=== PATIENT | male | born 1940 | race Caucasian/White ===

== ENCOUNTER 2017-10-17 16:05 | Inpatient (IN) ==
--- NOTE | 2017-10-17 16:27 | ED ---
HPI General Chief Complaint: Shortness of Breath/Dyspnea Stated Complaint: sob/evac Time Seen by Provider: 10/17/17 16:17 Mode of arrival: EMS Limitations: no limitations History of Present Illness 6-year-old male with past medical history significant for A. fib on anticoagulation, COPD was brought into the emergency department with increasing shortness of breath that started about approximately 1 week ago. Patient reports productive cough that has been worsening and subjective fevers at home. MD Complaint: shortness of breath and cough Onset (ago): week(s) (2) Severity: moderate Exacerbating factors: exertion Known history of: COPD Related Data Home oxygen amount: none Home Medications Medication Instructions Recorded Confirmed atorvastatin 10/17/17 buspirone 5 mg PO BID 10/17/17 10/17/17 digoxin 0.125 mg PO DAILY 10/17/17 10/17/17 diltiazem HCl 10/17/17 10/17/17 nicotine 1 patch TRANSDERMAL DAILY 10/17/17 10/17/17 rivaroxaban 20 mg PO QPM 10/17/17 10/17/17 sildenafil 10/17/17 tramadol 50 mg PO BID 10/17/17 10/17/17 venlafaxine 75 mg PO TID 10/17/17 10/17/17 Allergies Allergy/AdvReac Type Severity Reaction Status Date / Time No Known Allergies Allergy Unverified 10/17/17 16:18 Review of Systems ROS Unobtainable All other systems reviewed negative except as stated in HPI Except as stated in HPI: all other systems reviewed are negative PMFSH History History Provided By: Patient and Medical Record Medical History Medical History Atrial fibrillation (Acute) COPD (chronic obstructive pulmonary disease) (Acute) Chest pain (Acute) High cholesterol (Acute) Prostate cancer (Acute) Surgical History Surgical History Hx of appendectomy (Acute) Social History Social History Substance History: No History of Abuse Second Hand Smoke Exposure: No Smoking Status: Current every day smoker Tobacco Type: Cigarettes How Often Do You Have a Drink Containing Alcohol: Never Recent Travel in [facility] within the Last 8 Weeks: No Recent Out of Country Travel within the Last 8 Weeks: No Exam Narrative Exam Narrative: GENERAL: Alert and oriented in moderate respiratory distress SKIN: Focused skin assessment warm/dry. HEAD: Atraumatic. Normocephalic. EYES: Pupils equal and round. No scleral icterus. No injection or drainage. ENT: No nasal bleeding or discharge. Mucous membranes pink and moist. NECK: Trachea midline. No JVD. CARDIOVASCULAR: Irregularly rate and rhythm. No murmur appreciated. RESPIRATORY: accessory muscle use. Wheezing expiratory bilaterally GASTROINTESTINAL: Abdomen soft, non-tender, nondistended. Hepatic and splenic margins not palpable. MUSCULOSKELETAL: No obvious deformities. No clubbing. No cyanosis. No edema. NEUROLOGICAL: Awake and alert. No obvious cranial nerve deficits. Motor grossly within normal limits. Normal speech. PSYCHIATRIC: Appropriate mood and affect; insight and judgment normal. Course Initial Documented Vital Signs Temperature 99.9 F H 10/17/17 16:14 Pulse Rate 116 H 10/17/17 16:14 Respiratory Rate 24 10/17/17 16:14 Blood Pressure 214/107 H 10/17/17 16:14 Pulse Oximetry 95 10/17/17 16:14 Last Documented Vital Signs Temperature 97.5 F L 10/19/17 03:46 Pulse Rate 87 10/19/17 03:46 Respiratory Rate 19 10/19/17 03:46 Blood Pressure 188/96 H 10/19/17 03:46 Pulse Oximetry 96 10/19/17 03:46 Critical Care Time Critical Care Time: Yes Total Critical Care Time: 30 Attestation: Aggregate critical care time was [-] minutes. Time to perform other separately billable procedures was not included in the critical care time. My time did not include minutes spent treating any other patients simultaneously or on activities that did not directly contribute to the patient's treatment. The services I provided to this patient were to treat and/or prevent clinically significant deterioration that could result in: I provided critical care services requiring my management, as noted below: Chart data review, documentation time, medication orders and management, vital sign assessments/reviewing monitor data, ordering and reviewing lab tests, ordering and interpreting/reviewing x-rays and diagnostic studies, care of the patient and discussion of the patient with the admitting physicians. Medical Decision Making MDM Narrative Medical decision making narrative: Patient with COPD exacerbation questionable findings on imaging for pneumonia. He was started on Rocephin and Zithromax for bronchitis steroids given admitted for further evaluation and treatment. Lab Data Lab results reviewed: Yes I reviewed the patient's lab results. Result diagrams: 10/18/17 04:59 10/17/17 16:34 Lab Results 10/17/17 10/17/17 10/17/17 Range/Units 16:34 16:34 16:34 WBC 15.7 H (4.0-11.0) th/mm3 RBC 4.59 (4.50-5.90) mil/mm3 Hgb 12.6 L (13.0-17.0) gm/dL Hct 37.5 L (39.0-51.0) % MCV 81.7 (80.0-100.0) fL MCH 27.5 (27.0-34.0) pg MCHC 33.6 (32.0-36.0) % RDW 15.2 (11.6-17.2) % Plt Count 296 (150-450) th/mm3 MPV 9.1 (7.0-11.0) fL Neut % (Auto) 80.5 H (16.0-70.0) % Lymph % (Auto) 6.9 L (9.0-44.0) % Routt % (Auto) 12.3 H (0.0-8.0) % Eos % (Auto) 0.1 (0.0-4.0) % Baso % (Auto) 0.2 (0.0-2.0) % Neut # (Auto) 12.7 H (1.8-7.7) th/mm3 Lymph # (Auto) 1.1 (1.0-4.8) th/mm3 Routt # (Auto) 1.9 H (0.0-0.9) th/mm3 Eos # (Auto) 0.0 (0.0-0.4) th/mm3 Baso # (Auto) 0.0 (0.0-0.2) th/mm3 WBC Differential . Differential Comment Auto diff final Sodium 136 (136-145) meq/L Potassium 3.3 L (3.5-5.1) meq/L Chloride 100 (98-107) meq/L Carbon Dioxide 27.2 (21.0-32.0) meq/L Anion Gap 9 (5-15) meq/L BUN 13 (7-18) mg/dL Creatinine 1.17 (0.60-1.30) mg/dL Estimated GFR 61 L (>89) mL/min Random Glucose 141 H (74-106) mg/dL Lactic Acid 1.4 (0.4-2.0) mmol/L Calcium 8.8 (8.5-10.1) mg/dL Total Bilirubin 0.8 (0.2-1.0) mg/dL AST 12 L (15-37) U/L ALT 22 (12-78) U/L Alkaline Phosphatase 135 H (45-117) U/L Troponin I Less than 0.02 L (0.02-0.05) ng/mL B-Natriuretic Peptide (0-100) pg/mL Total Protein 7.9 (6.4-8.2) g/dL Albumin 3.1 L (3.4-5.0) g/dL 10/17/17 10/18/17 Range/Units 16:34 04:59 WBC 13.0 H (4.0-11.0) th/mm3 RBC 4.41 L (4.50-5.90) mil/mm3 Hgb 11.9 L (13.0-17.0) gm/dL Hct 36.4 L (39.0-51.0) % MCV 82.4 (80.0-100.0) fL MCH 27.1 (27.0-34.0) pg MCHC 32.9 (32.0-36.0) % RDW 15.3 (11.6-17.2) % Plt Count 282 (150-450) th/mm3 MPV 9.1 (7.0-11.0) fL Neut % (Auto) 91.3 H (16.0-70.0) % Lymph % (Auto) 4.7 L (9.0-44.0) % Routt % (Auto) 3.9 (0.0-8.0) % Eos % (Auto) 0.0 (0.0-4.0) % Baso % (Auto) 0.1 (0.0-2.0) % Neut # (Auto) 11.8 H (1.8-7.7) th/mm3 Lymph # (Auto) 0.6 L (1.0-4.8) th/mm3 Routt # (Auto) 0.5 (0.0-0.9) th/mm3 Eos # (Auto) 0.0 (0.0-0.4) th/mm3 Baso # (Auto) 0.0 (0.0-0.2) th/mm3 WBC Differential . Differential Comment Auto diff final Sodium (136-145) meq/L Potassium (3.5-5.1) meq/L Chloride (98-107) meq/L Carbon Dioxide (21.0-32.0) meq/L Anion Gap (5-15) meq/L BUN (7-18) mg/dL Creatinine (0.60-1.30) mg/dL Estimated GFR (>89) mL/min Random Glucose (74-106) mg/dL Lactic Acid (0.4-2.0) mmol/L Calcium (8.5-10.1) mg/dL Total Bilirubin (0.2-1.0) mg/dL AST (15-37) U/L ALT (12-78) U/L Alkaline Phosphatase (45-117) U/L Troponin I (0.02-0.05) ng/mL B-Natriuretic Peptide 174 H (0-100) pg/mL Total Protein (6.4-8.2) g/dL Albumin (3.4-5.0) g/dL Imaging Data Attestation: I personally reviewed and interpreted this imaging study as follows : Radiologist's impression: Chest X-Ray 10/17/17 16:24 CONCLUSION: Mild vascular prominence as described which may represent early congestion. No evidence of consolidating airspace disease. ECG Data Attestation: I personally reviewed and interpreted this ECG as follows: Interpretation: EKG obtained on October 17, 2017 at 1615 revealed atrial fibrillation with RVR in the rate of [address]-T wave abnormalities, OH interval not measured. QTC at 328. No signs of acute ischemia. He does have ST depressions on V4 through V6 but no signs of acute ischemia. Normal axis Discharge Plan Discharge Disposition Patient Disposition: 30 Still Patient Discharge Condition Condition: Fair Discharge Details Diagnosis: Acute exacerbation of chronic obstructive pulmonary disease (COPD), Bronchitis , CHF (congestive heart failure), Accelerated essential hypertension, Atrial fibrillation with RVR Physicians Team ED Provider: Joe Galan Primary Care Provider: Primary Care Physici,No Attending Provider: Edna Solorzano Status ED Status: Left Department Discharge Information Discharge Date/Time: 10/17/17 20:42
[2017-10-17 16:55] LABS: Baso % (Auto) 0.2 % (0.0-2.0); Eos % (Auto) 0.1 % (0.0-4.0); Hematocrit 37.5 % (39.0-51.0); Hemoglobin 12.6 gm/dL (13.0-17.0); Lymph # (Auto) 1.1 th/mm3 (1.0-4.8); Lymph % (Auto) 6.9 % (9.0-44.0); Mean Corpuscular HGB Conc 33.6 % (32.0-36.0); Mean Corpuscular Hemoglobin 27.5 pg (27.0-34.0); Mean Corpuscular Volume 81.7 fL (80.0-100.0); Mean Platelet Volume 9.1 fL (7.0-11.0); Mono # (Auto) 1.9 th/mm3 (0.0-0.9); Mono % (Auto) 12.3 % (0.0-8.0); Neut # (Auto) 12.7 th/mm3 (1.8-7.7); Neut % (Auto) 80.5 % (16.0-70.0); Platelet Count 296 th/mm3 (150-450); Red Blood Count 4.59 mil/mm3 (4.50-5.90); Red Cell Distribution Width 15.2 % (11.6-17.2); White Blood Count 15.7 th/mm3 (4.0-11.0)
[2017-10-17 17:17] LABS: Alanine Aminotransferase 22 U/L (12-78); Albumin 3.1 g/dL (3.4-5.0); Anion Gap 9 meq/L (5-15); Aspartate Aminotransferase 12 U/L (15-37); Blood Urea Nitrogen 13 mg/dL (7-18); Calcium 8.8 mg/dL (8.5-10.1); Carbon Dioxide 27.2 meq/L (21.0-32.0); Chloride 100 meq/L (98-107); Glomerular Filtration Rate 61 mL/min (>89); Glucose,Random 141 mg/dL (74-106); Potassium 3.3 meq/L (3.5-5.1); Sodium 136 meq/L (136-145)
[2017-10-17 17:20] LABS: Alkaline Phosphatase 135 U/L (45-117); Total Protein 7.9 g/dL (6.4-8.2)
--- NOTE | 2017-10-17 17:30 | XR ---
EXAM DATE: 10/17/2017 4:51 PM EDT AGE/SEX: 76 years / Male INDICATIONS: Short of breath and cough. CLINICAL DATA: This is the patient's initial encounter. Patient reports that signs and symptoms have been present for 1 week and indicates a pain score of 0/10. MEDICAL/SURGICAL HISTORY: Cardiovascular disease. None. COMPARISON: No prior exams available for comparison. FINDINGS: Mild vascular prominence especially throughout the right lung is noted. There is no evidence of conso lidating airspace disease or effusion. Heart is normal in size CONCLUSION: Mild vascular prominence as described which may represent early congestion. No evidence of consolidating airspace disease. Electronically signed by: Amrik Dubois MD 10/17/2017 5:28 PM EDT
[2017-10-17] MEDS ORDERED: Azithromycin Inj 500 MG in Sodium Chlor 0.9% Inj 250 ML IV.SIG ONE (17:41)
[2017-10-17] MEDS ORDERED: Acetaminophen 325 MG Tablet PO ONE (17:54)
--- NOTE | 2017-10-17 18:19 | P.HPIM ---
History of Present Illness Primary Care Physician: No Primary Care Physician Chief Complaint: shortness of breath History of Present Illness: patient is a 76 y/o male with history of COPD, atrial fibrillation, dyslipidemia , who presented to ER with shortness of breath. he says that he's had sob for the past one week. he had productive cough of yellowish, brownish sputum. he says that he probably had fever at home. he denies PND, orthopnea, recent weight gain. he says that he has some chest wall pain which he relates to his cough.he still smokes. Review of Systems All other systems reviewed negative except as stated in HPI PMFSH - History History Provided By: Patient - Medical History Medical History: Medical History (Last Updated 10/17/17 @ 17:18 by Murali Soto) Atrial fibrillation COPD (chronic obstructive pulmonary disease) Chest pain High cholesterol Prostate cancer - Surgical History Surgical History: Surgical History (Last Updated 10/17/17 @ 17:18 by Murali Soto) Hx of appendectomy - Tobacco History Second Hand Smoke Exposure: Yes Tobacco Use In Past 30 Days: Yes Smoking Status: Current every day smoker Tobacco Type: Cigarettes - Alcohol History How Often Do You Have a Drink Containing Alcohol: Never - Substance Use History Substance History: No History of Abuse - Travel History Recent Travel in the [place] Within the Last 8 Weeks: No Recent Travel Out of the Country Within the Last 8 Weeks: No - Immunization History Tetanus Immunization: Unsure Medications and Allergies Active Medications: Active Medications Albuterol (Duoneb Neb (Prn)) 1 ampul NEB Q2HR NEB PRN PRN Reason: sob Albuterol (Duoneb Neb (Chris)) 1 ampul NEB Q6HR WHILE AWAKE NEB CHRIS Azithromycin (Zithromax) 500 mg PO DAILY CHRIS Buspirone HCl (Buspar) 5 mg PO BID CHRIS Digoxin (Lanoxin) 125 mcg PO DAILY CHRIS Azithromycin 500 mg/ Sodium (Chloride) 250 mls @ 250 mls/hr IV.SIG ONCE ONE Stop: 10/17/17 18:40 Ceftriaxone Sodium 1,000 mg/ (Sodium Chloride) 100 mls @ 200 mls/hr IV.SIG Q24H CHRIS Methylprednisolone Sodium Succinate (Solumedrol Inj) 40 mg IV.PUSH Q8HR CHRIS Nitroglycerin (Nitrostat Sl) 0.4 mg SL Q5M PRN PRN Reason: HTN Non-Formulary Medication (Venlafaxine [Venlafaxine]) 75 mg PO TID CHRIS Rivaroxaban (Xarelto) 20 mg PO QPM [facility] Allergies Allergy/AdvReac Type Severity Reaction Status Date / Time No Known Allergies Allergy Unverified 10/17/17 16:18 Home Medications Medication Instructions Recorded Confirmed Type atorvastatin 10/17/17 History buspirone 5 mg PO BID 10/17/17 10/17/17 History digoxin 0.125 mg PO DAILY 10/17/17 10/17/17 History diltiazem HCl 10/17/17 10/17/17 History nicotine 1 patch TRANSDERMAL DAILY 10/17/17 10/17/17 History rivaroxaban 20 mg PO QPM 10/17/17 10/17/17 History tramadol 50 mg PO BID 10/17/17 10/17/17 History venlafaxine 75 mg PO TID 10/17/17 10/17/17 History Exam Vital signs: Vital Signs 10/17/17 16:14 10/17/17 16:57 10/17/17 17:00 Temperature 99.9 F H Pulse Rate 116 H 112 H 102 H Respiratory Rate 24 30 H 22 Blood Pressure 214/107 H 182/88 H Pulse Oximetry 95 96 93 L Intake & Output 10/16/17 10/17/17 10/17/17 18:59 06:59 18:59 Weight 90.718 kg - Constitutional mild distress - Routine HEENT Exam Head: Present: normocephalic Eye: Present: PERRL - Routine Neck Exam Present: supple, full ROM - Routine Respiratory Exam Present: wheezes (bilaterally.) - Routine Cardiovascular Exam Present: irregularly irregular - Routine Abdominal Exam Present: soft - Routine Extremities Exam Comments: no pedal edema. - Routine Neurological Exam Present: alert, oriented X3 Results - Labs CBC & Chem 7: 10/17/17 16:34 10/17/17 16:34 Labs: Short CBC 10/17/17 Range/Units 16:34 WBC 15.7 H (4.0-11.0) th/mm3 Hgb 12.6 L (13.0-17.0) gm/dL Hct 37.5 L (39.0-51.0) % Plt Count 296 (150-450) th/mm3 BMP 10/17/17 16:34 Sodium 136 Potassium 3.3 L Chloride 100 Carbon Dioxide 27.2 BUN 13 Creatinine 1.17 Calcium 8.8 Cardiac Enzymes 10/17/17 Range/Units 16:34 Troponin I Less than 0.02 L (0.02-0.05) ng/mL Liver Function 10/17/17 Range/Units 16:34 Total Bilirubin 0.8 (0.2-1.0) mg/dL AST 12 L (15-37) U/L ALT 22 (12-78) U/L Alkaline Phosphatase 135 H (45-117) U/L Albumin 3.1 L (3.4-5.0) g/dL - Imaging Impressions Chest X-Ray 10/17/17 16:24 CONCLUSION: Mild vascular prominence as described which may represent early congestion. No evidence of consolidating airspace disease. Caprini VTE Risk Assessment Caprini VTE Risk Assessment: Moderate/High Risk (score >= 2) Caprini Risk Assessment Model: Point Value = 1 Point Value = 2 Point Value = 3 Point Value = 5 Age 41-60 Minor surgery BMI > 25 kg/m2 Swollen legs Varicose veins or History of unexplained or recurrent spontaneous Oral contraceptives or hormone replacement Sepsis (< 1 month) Serious lung disease, including pneumonia (< 1 month) Abnormal pulmonary function Acute myocardial infarction Congestive heart failure (< 1 month) History of inflammatory bowel disease Medical patient at bed rest Age 61-74 Arthroscopic surgery Major open surgery (> 45 min) Laparoscopic surgery (> 45 min) Malignancy Confined to bed (> 72 hours) Immobilizing plaster cast Central venous access Age >= 75 History of VTE Family history of VTE Factor V Leiden Prothrombin [id number] Lupus anticoagulant Anticardiolipin antibodies Elevated serum homocysteine Heparin-induced thrombocytopenia Other congenital or acquired thrombophilia Stroke (< 1 month) Elective arthroplasty Hip, pelvis, or leg fracture Acute spinal cord injury (< 1 month) Prophylaxis Regimen: Total Risk Factor Score Risk Level Prophylaxis Regimen 0-1 Low Early ambulation 2 Moderate Order ONE of the following: *Sequential Compression Device (SCD) *Heparin 5000 units SQ BID 3-4 Higher Order ONE of the following medications: *Heparin 5000 units SQ TID *Enoxaparin/Lovenox 40 mg SQ daily (WT < 150 kg, CrCl > 30 mL/min) *Enoxaparin/Lovenox 30 mg SQ daily (WT < 150 kg, CrCl > 10-29 mL/min) *Enoxaparin/Lovenox 30 mg SQ BID (WT < 150 kg, CrCl > 30 mL/min) AND/OR *Sequential Compression Device (SCD) 5 or more Highest Order ONE of the following medications: *Heparin 5000 units SQ TID (Preferred with Epidurals) *Enoxaparin/Lovenox 40 mg SQ daily (WT < 150 kg, CrCl > 30 mL/min) *Enoxaparin/Lovenox 30 mg SQ daily (WT < 150 kg, CrCl > 10-29 mL/min) *Enoxaparin/Lovenox 30 mg SQ BID (WT < 150 kg, CrCl > 30 mL/min) AND *Sequential Compression Device (SCD) Assessment and Plan - Plan A/P - COPD exacerbation/ suspect pneumonia keep on oxygen to keep O2 sat >90%- start on neb treatment and IV steroids- continue antibiotics and follow the cultures. counselled on smoking cessation. -a-fib- mildly tachycardic; resume Cardizem, Digoxin and Xarelto- continue to monitor closely while on neb treatments. -dyslipidemia; resume home meds. -mild hypokalemia; replaced. -DVT prophylaxis; on Xarelto. Discussed Condition With: ER physician and the patient. Discharge Planning: when has clinically improved.
[2017-10-18] MEDS: MethylPREDNISolone Sod Succinate Inj 40 MG/ML Vial IV.PUSH SCH ×3 (01:22→17:49)
[2017-10-18 05:54] LABS: Baso % (Auto) 0.1 % (0.0-2.0); Hematocrit 36.4 % (39.0-51.0); Hemoglobin 11.9 gm/dL (13.0-17.0); Lymph # (Auto) 0.6 th/mm3 (1.0-4.8); Lymph % (Auto) 4.7 % (9.0-44.0); Mean Corpuscular HGB Conc 32.9 % (32.0-36.0); Mean Corpuscular Hemoglobin 27.1 pg (27.0-34.0); Mean Corpuscular Volume 82.4 fL (80.0-100.0); Mean Platelet Volume 9.1 fL (7.0-11.0); Mono # (Auto) 0.5 th/mm3 (0.0-0.9); Mono % (Auto) 3.9 % (0.0-8.0); Neut # (Auto) 11.8 th/mm3 (1.8-7.7); Neut % (Auto) 91.3 % (16.0-70.0); Platelet Count 282 th/mm3 (150-450); Red Blood Count 4.41 mil/mm3 (4.50-5.90); Red Cell Distribution Width 15.3 % (11.6-17.2)
[2017-10-18] MEDS: Digoxin 125 MCG Tablet PO SCH (08:54)
[2017-10-18] MEDS: Venlafaxine XR 75 MG Capsule PO SCH (08:55)
--- NOTE | 2017-10-18 10:08 | ECG ---
Date Performed: 10/17/2017 Time Performed: 16:15:32 PTAGE: 76 years EKG: ATRIAL FIBRILLATION WITH RAPID VENTRICULAR RESPONSE NONSPECIFIC ST & T-WAVE ABNORMALITY ABN ORMAL RHYTHM ECG NO PREVIOUS TRACING DOCTOR: Alisa Horowitz Interpretating Date/Time 10/18/2017 10:05:31
--- NOTE | 2017-10-18 12:27 | P.PNIM ---
Subjective Interval history: still with some sob and cough although looks slightly more comfortable than yesterday. no fever today. no other new complaints. overall feeling better today. d/w the RN. Physical Exam Vital signs: Vital Signs 10/17/17 16:14 10/17/17 16:57 10/17/17 17:00 Temperature 99.9 F H Pulse Rate 116 H 112 H 102 H Respiratory Rate 24 30 H 22 Blood Pressure 214/107 H 182/88 H Pulse Oximetry 95 96 93 L 10/17/17 19:31 10/17/17 20:02 10/17/17 21:03 Temperature 97.8 F Pulse Rate 74 103 H 86 Respiratory Rate 22 20 19 Blood Pressure 192/93 H 187/93 H Pulse Oximetry 92 L 97 10/17/17 23:00 10/17/17 23:40 10/18/17 00:05 Temperature 97.7 F Pulse Rate 84 Respiratory Rate 19 21 19 Blood Pressure 175/87 H Pulse Oximetry 97 10/18/17 03:00 10/18/17 04:41 10/18/17 05:39 Temperature 97.5 F L Pulse Rate 80 Respiratory Rate 18 18 17 Blood Pressure 189/96 H Pulse Oximetry 95 10/18/17 08:00 10/18/17 09:09 Temperature 97.5 F L Pulse Rate 86 85 Respiratory Rate 18 14 Blood Pressure 189/88 H Pulse Oximetry 97 99 Intake & Output 10/17/17 10/18/17 10/18/17 18:59 06:59 18:59 Intake Total 480 / 480 Output Total 250 / 250 Balance 230 / 230 Weight 90.718 kg 90.7 kg Intake: Oral 480 / 480 Output: Urine 250 / 250 Other: # Voids 3 Date of Last Bowel Movement 10/16/17 # Bowel Movements 0 - Constitutional mild distress - Routine Respiratory Exam Present: wheezes (bilaterally.) - Routine Cardiovascular Exam Present: RRR - Routine Abdominal Exam Present: soft - Routine Extremities Exam Comments: no pedal edema. - Routine Neurological Exam Present: alert, oriented X3 Results - Labs CBC & Chem 7: 10/18/17 04:59 10/17/17 16:34 Laboratory Results - last 24 hr 10/17/17 10/17/17 10/17/17 16:34 16:34 16:34 WBC 15.7 H RBC 4.59 Hgb 12.6 L Hct 37.5 L MCV 81.7 MCH 27.5 MCHC 33.6 RDW 15.2 Plt Count 296 MPV 9.1 Neut % (Auto) 80.5 H Lymph % (Auto) 6.9 L Dunn % (Auto) 12.3 H Eos % (Auto) 0.1 Baso % (Auto) 0.2 Neut # (Auto) 12.7 H Lymph # (Auto) 1.1 Dunn # (Auto) 1.9 H Eos # (Auto) 0.0 Baso # (Auto) 0.0 WBC Differential . Differential Comment Auto diff final Sodium 136 Potassium 3.3 L Chloride 100 Carbon Dioxide 27.2 Anion Gap 9 BUN 13 Creatinine 1.17 Estimated GFR 61 L Random Glucose 141 H Lactic Acid 1.4 Calcium 8.8 Total Bilirubin 0.8 AST 12 L ALT 22 Alkaline Phosphatase 135 H Troponin I Less than 0.02 L B-Natriuretic Peptide Total Protein 7.9 Albumin 3.1 L 10/17/17 10/18/17 16:34 04:59 WBC 13.0 H RBC 4.41 L Hgb 11.9 L Hct 36.4 L MCV 82.4 MCH 27.1 MCHC 32.9 RDW 15.3 Plt Count 282 MPV 9.1 Neut % (Auto) 91.3 H Lymph % (Auto) 4.7 L Dunn % (Auto) 3.9 Eos % (Auto) 0.0 Baso % (Auto) 0.1 Neut # (Auto) 11.8 H Lymph # (Auto) 0.6 L Dunn # (Auto) 0.5 Eos # (Auto) 0.0 Baso # (Auto) 0.0 WBC Differential . Differential Comment Auto diff final Sodium Potassium Chloride Carbon Dioxide Anion Gap BUN Creatinine Estimated GFR Random Glucose Lactic Acid Calcium Total Bilirubin AST ALT Alkaline Phosphatase Troponin I B-Natriuretic Peptide 174 H Total Protein Albumin Microbiology 10/17/17 18:00 Blood - Peripheral Aerobic Blood Culture - Preliminary No growth in 1 day 10/17/17 18:00 Blood - Peripheral Anaerobic Blood Culture - Preliminary No growth in 1 day 10/17/17 17:55 Blood - Peripheral Aerobic Blood Culture - Preliminary No growth in 1 day 10/17/17 17:55 Blood - Peripheral Anaerobic Blood Culture - Preliminary No growth in 1 day 10/17/17 17:10 Blood - Peripheral Aerobic Blood Culture - Preliminary No growth in 1 day 10/17/17 17:10 Blood - Peripheral Anaerobic Blood Culture - Preliminary No growth in 1 day 10/17/17 17:05 Blood - Peripheral Aerobic Blood Culture - Preliminary No growth in 1 day 10/17/17 17:05 Blood - Peripheral Anaerobic Blood Culture - Preliminary No growth in 1 day - Imaging Impressions Chest X-Ray 10/17/17 16:24 CONCLUSION: Mild vascular prominence as described which may represent early congestion. No evidence of consolidating airspace disease. Assessment and Plan - Plan A/P - COPD exacerbation/ suspect pneumonia- improving slowly. keep on oxygen to keep O2 sat >90%- start on neb treatment and IV steroids- continue antibiotics and follow the cultures. counselled on smoking cessation. walk test tomorrow. -a-fib- HR better; continue Cardizem, Digoxin and Xarelto- continue to monitor closely while on neb treatments. -dyslipidemia; resumed home meds. -mild hypokalemia; replaced. -DVT prophylaxis; on Xarelto. Discharge Planning: dc home in one-two days if continues to improve. consulted PT.
[2017-10-18] MEDS: guaiFENesin/Codeine Syrup 200 MG/20 MG 10 ML UDC PO PRN ×2 (18:56→23:30)
[2017-10-18] MEDS: Rivaroxaban 20 MG Tablet PO SCH (19:59)
[2017-10-18] MEDS: Azithromycin 250 MG Tablet PO SCH (21:00)
[2017-10-19] MEDS: MethylPREDNISolone Sod Succinate Inj 40 MG/ML Vial IV.PUSH SCH ×3 (01:00→17:05)
[2017-10-19] MEDS: guaiFENesin/Codeine Syrup 200 MG/20 MG 10 ML UDC PO PRN ×2 (05:44→17:06)
[2017-10-19] MEDS: Venlafaxine XR 75 MG Capsule PO SCH (09:10)
[2017-10-19] MEDS: Azithromycin 250 MG Tablet PO SCH (09:10)
[2017-10-19] MEDS: Digoxin 125 MCG Tablet PO SCH (09:11)
--- NOTE | 2017-10-19 11:17 | P.PNIM ---
Subjective Interval history: f/u; pneumonia looks more comfortable today. sob improving but still with exertional dyspnea. no fever. Physical Exam Vital signs: Vital Signs 10/18/17 12:00 10/18/17 13:41 10/18/17 16:00 Temperature 97.2 F L 97.1 F L Pulse Rate 82 82 96 H Respiratory Rate 18 14 19 Blood Pressure 187/88 H 179/93 H Pulse Oximetry 98 98 10/18/17 20:29 10/18/17 21:49 10/19/17 00:00 Temperature 97.8 F 97.5 F L Pulse Rate 93 H 82 82 Respiratory Rate 19 18 19 Blood Pressure 176/83 H 161/77 H Pulse Oximetry 96 96 95 10/19/17 03:46 10/19/17 08:00 10/19/17 08:01 Temperature 97.5 F L 97.6 F Pulse Rate 87 88 Respiratory Rate 19 20 Blood Pressure 188/96 H 168/86 H Pulse Oximetry 96 99 97 Intake & Output 10/18/17 10/19/17 10/19/17 18:59 06:59 18:59 Intake Total 580 / 580 Balance 580 / 580 Weight 90.7 kg Intake: IV 100 / 100 Rocephin Inj 1,000 MG In NS Inj 100 / 100 100 ML @ 200 mls/hr IV.SIG Q24H JAYME Rx#:[id number] Oral 480 / 480 Other: # Voids 1 Date of Last Bowel Movement 10/16/17 10/17/17 # Bowel Movements 0 - Constitutional mild distress - Routine Respiratory Exam Present: decreased breath sounds (but better air entry an improved wheezing.) - Routine Cardiovascular Exam Present: RRR - Routine Abdominal Exam Present: soft - Routine Extremities Exam Comments: no pedal edema. - Routine Neurological Exam Present: alert, oriented X3 Results - Labs CBC & Chem 7: 10/18/17 04:59 10/17/17 16:34 Microbiology 10/17/17 18:00 Blood - Peripheral Aerobic Blood Culture - Preliminary No growth in 2 days 10/17/17 18:00 Blood - Peripheral Anaerobic Blood Culture - Preliminary No growth in 2 days 10/17/17 17:55 Blood - Peripheral Aerobic Blood Culture - Preliminary No growth in 2 days 10/17/17 17:55 Blood - Peripheral Anaerobic Blood Culture - Preliminary No growth in 2 days 07/19/18 17:10 Blood - Peripheral Aerobic Blood Culture - Preliminary No growth in 2 days 10/17/17 17:10 Blood - Peripheral Anaerobic Blood Culture - Preliminary No growth in 2 days 10/17/17 17:05 Blood - Peripheral Aerobic Blood Culture - Preliminary No growth in 2 days 10/17/17 17:05 Blood - Peripheral Anaerobic Blood Culture - Preliminary No growth in 2 days Assessment and Plan - Plan A/P - COPD exacerbation/ suspect pneumonia- improving slowly. keep on oxygen to keep O2 sat >90%- started on neb treatment and IV steroids- continue antibiotics and follow the cultures. counselled on smoking cessation. walk test today. -a-fib- HR better; continue Cardizem, Digoxin and Xarelto- continue to monitor closely while on neb treatments. -dyslipidemia; resumed home meds. -mild hypokalemia; replaced. -DVT prophylaxis; on Xarelto. Discharge Planning: dc home tomorrow if continues to improve. walk test today. consulted PT.
[2017-10-19] MEDS: dilTIAZem CD 120 MG Capsule PO SCH (12:35)
[2017-10-19] MEDS: Rivaroxaban 20 MG Tablet PO SCH (17:06)
[2017-10-20] MEDS: MethylPREDNISolone Sod Succinate Inj 40 MG/ML Vial IV.PUSH SCH ×3 (01:20→18:40)
[2017-10-20] MEDS: guaiFENesin/Codeine Syrup 200 MG/20 MG 10 ML UDC PO PRN ×2 (07:02→20:16)
--- NOTE | 2017-10-20 09:18 | P.PNIM ---
Subjective Interval history: f/u; pneumonia looks and feels much better today. says that he's strong enough to go home. no fever. no new complaints. Physical Exam Vital signs: Vital Signs 10/19/17 12:00 10/19/17 13:21 10/19/17 16:00 Temperature 97.2 F L 97.1 F L Pulse Rate 105 H 86 92 H Respiratory Rate 20 18 20 Blood Pressure 180/85 H 175/84 H Pulse Oximetry 95 97 96 Pulse Oximetry [Exertion on Room Air] Pulse Oximetry [Resting on Room Air] 10/19/17 18:30 10/19/17 20:00 10/19/17 20:02 Temperature 97.8 F Pulse Rate 90 78 Respiratory Rate 18 Blood Pressure 180/83 H 170/86 H Pulse Oximetry 95 95 Pulse Oximetry [Exertion on Room Air] 92 L Pulse Oximetry [Resting on Room Air] 95 10/19/17 20:05 10/20/17 00:00 10/20/17 04:52 Temperature 96.9 F L Pulse Rate 87 91 H Respiratory Rate 18 20 19 Blood Pressure 167/81 H Pulse Oximetry 95 95 Pulse Oximetry [Exertion on Room Air] Pulse Oximetry [Resting on Room Air] 10/20/17 08:44 Temperature Pulse Rate 91 H Respiratory Rate 14 Blood Pressure Pulse Oximetry Pulse Oximetry [Exertion on Room Air] Pulse Oximetry [Resting on Room Air] Intake & Output 10/19/17 10/20/17 10/20/17 18:59 06:59 18:59 Intake Total 700 / 700 Output Total Balance -1 / -1 700 / 700 Weight 90.7 kg Intake: IV 100 / 100 Rocephin Inj 1,000 MG In NS Inj 100 / 100 100 ML @ 200 mls/hr IV.SIG Q24H [facility] Rx#:[id number] Oral 600 / 600 Output: Stool Other: # Voids 4 Date of Last Bowel Movement 10/19/17 - Constitutional no acute distress - Routine Respiratory Exam Present: CTA bilaterally Comments: wheezing has resolved. - Routine Cardiovascular Exam Present: RRR - Routine Abdominal Exam Present: soft - Routine Extremities Exam Comments: no pedal edema. - Routine Neurological Exam Present: alert, oriented X3 Results - Labs CBC & Chem 7: 10/18/17 04:59 10/17/17 16:34 Microbiology 10/17/17 18:00 Blood - Peripheral Aerobic Blood Culture - Preliminary No growth in 2 days 10/17/17 18:00 Blood - Peripheral Anaerobic Blood Culture - Preliminary No growth in 2 days 10/17/17 17:55 Blood - Peripheral Aerobic Blood Culture - Preliminary No growth in 2 days 10/17/17 17:55 Blood - Peripheral Anaerobic Blood Culture - Preliminary No growth in 2 days 10/17/17 17:10 Blood - Peripheral Aerobic Blood Culture - Preliminary No growth in 2 days 10/17/17 17:10 Blood - Peripheral Anaerobic Blood Culture - Preliminary No growth in 2 days 10/17/17 17:05 Blood - Peripheral Aerobic Blood Culture - Preliminary No growth in 2 days 10/17/17 17:05 Blood - Peripheral Anaerobic Blood Culture - Preliminary No growth in 2 days - Procedures none. Assessment and Plan - Plan A/P - COPD exacerbation/ suspect pneumonia- has much improved. off oxygen now and passed the walk test- will switch to po antibiotics and steroids. counselled on smoking cessation. -a-fib- HR better; continue Cardizem, Digoxin and Xarelto- continue to monitor closely while on neb treatments. -dyslipidemia; resumed home meds. -mild hypokalemia; replaced. -DVT prophylaxis; on Xarelto. Discharge Planning: dc home today. see med list. f/u; pcp. d/w the patient.
--- NOTE | 2017-10-20 09:32 | P.DS ---
Date of admission: 10/17/17 18:10 Primary care physician: No Primary Care Physician Brief History from admission: patient is a 76 y/o male with history of COPD, atrial fibrillation, dyslipidemia , who presented to ER with shortness of breath. he says that he's had sob for the past one week. he had productive cough of yellowish, brownish sputum. he says that he probably had fever at home. he denies PND, orthopnea, recent weight gain. he says that he has some chest wall pain which he relates to his cough.he still smokes. DS: Medications - Discharge Medications Prescriptions: albuterol sulfate [ProAir HFA] 1 puff INHALATION Q4-6H PRN #1 g PRN Reason: shortness of breath azithromycin 500 mg PO DAILY 3 Days #6 tab cefuroxime axetil 500 mg PO Q12H 5 Days #20 tab prednisone [Deltasone] 40 mg PO DAILY 5 Days #10 tab DS: Summary Hospital Course: patient was admitted with COPD exacerbation and possible pneumonia. he was started on IV antibiotics, steroids and neb treatment. blood cultures negative. his sob improved and he passed the walk test. otherwise the course in the hospital was uneventful. patient will be discharged home with f/u with pcp. - Time Spent with Patient Total time spent providing and/or coordinating discharge services: - Quality: VTE Deep Vein Thrombosis/Pulmonary Embolism Present on Admission: No Exam Vital signs: Vital Signs 10/19/17 12:00 10/19/17 13:21 10/19/17 16:00 Temperature 97.2 F L 97.1 F L Pulse Rate 105 H 86 92 H Respiratory Rate 20 18 20 Blood Pressure 180/85 H 175/84 H Pulse Oximetry 95 97 96 Pulse Oximetry [Exertion on Room Air] Pulse Oximetry [Resting on Room Air] 10/19/17 18:30 10/19/17 20:00 10/19/17 20:02 Temperature 97.8 F Pulse Rate 90 78 Respiratory Rate 18 Blood Pressure 180/83 H 170/86 H Pulse Oximetry 95 95 Pulse Oximetry [Exertion on Room Air] 92 L Pulse Oximetry [Resting on Room Air] 95 10/19/17 20:05 10/20/17 00:00 10/20/17 04:52 Temperature 96.9 F L Pulse Rate 87 91 H Respiratory Rate 18 20 19 Blood Pressure 167/81 H Pulse Oximetry 95 95 Pulse Oximetry [Exertion on Room Air] Pulse Oximetry [Resting on Room Air] 10/20/17 08:00 10/20/17 08:44 Temperature 98.7 F Pulse Rate 73 91 H Respiratory Rate 20 14 Blood Pressure 192/105 H Pulse Oximetry 100 Pulse Oximetry [Exertion on Room Air] Pulse Oximetry [Resting on Room Air] Intake & Output 10/19/17 10/20/17 10/20/17 18:59 06:59 18:59 Intake Total 700 / 700 Output Total Balance - / -1 700 / 700 Weight 90.7 kg Intake: IV 100 / 100 Rocephin Inj 1,000 MG In NS Inj 100 / 100 100 ML @ 200 mls/hr IV.SIG Q24H [facility] Rx#:[id number] Oral 600 / 600 Output: Stool Other: # Voids 4 Date of Last Bowel Movement 10/19/17 Results Procedures completed during hospitalization: none. Labs on day of discharge: Preliminary micro results at discharge 10/17/17 18:00 Aerobic Blood Culture - Preliminary Blood - Peripheral No growth in 2 days Anaerobic Blood Culture - Preliminary No growth in 2 days 10/17/17 17:55 Aerobic Blood Culture - Preliminary Blood - Peripheral No growth in 2 days Anaerobic Blood Culture - Preliminary No growth in 2 days 10/17/17 17:10 Aerobic Blood Culture - Preliminary Blood - Peripheral No growth in 2 days Anaerobic Blood Culture - Preliminary No growth in 2 days 10/17/17 17:05 Aerobic Blood Culture - Preliminary Blood - Peripheral No growth in 2 days Anaerobic Blood Culture - Preliminary No growth in 2 days - Impressions ITS Impressions Chest X-Ray 10/17/17 16:24 CONCLUSION: Mild vascular prominence as described which may represent early congestion. No evidence of consolidating airspace disease. Discharge Plan - Discharge Disposition Patient Disposition: Discharge Home - Discharge Condition Condition: Fair - Physicians Team Primary Care Provider: Primary Care Lilly Garrett Attending Provider: Edna Solorzano
[2017-10-20] MEDS: Digoxin 125 MCG Tablet PO SCH (09:44)
[2017-10-20] MEDS: Venlafaxine XR 75 MG Capsule PO SCH (09:44)
[2017-10-20] MEDS: Azithromycin 250 MG Tablet PO SCH (09:45)
[2017-10-20] MEDS: dilTIAZem CD 120 MG Capsule PO SCH (09:45)
[2017-10-20] MEDS ORDERED: Rivaroxaban 20 MG Tablet PO SCH (18:30)
[2017-10-21] MEDS: MethylPREDNISolone Sod Succinate Inj 40 MG/ML Vial IV.PUSH SCH ×2 (00:52→08:25)
[2017-10-21] MEDS: guaiFENesin/Codeine Syrup 200 MG/20 MG 10 ML UDC PO PRN (04:45)
[2017-10-21] MEDS: Azithromycin 250 MG Tablet PO SCH (08:26)
[2017-10-21] MEDS: dilTIAZem CD 120 MG Capsule PO SCH (08:26)
[2017-10-21] MEDS: Venlafaxine XR 75 MG Capsule PO SCH (08:26)
[2017-10-21] MEDS: Digoxin 125 MCG Tablet PO SCH (08:26)
--- NOTE | 2017-10-21 08:42 | P.PN ---
Subjective Interval history: BP still mildly elevated add, hydralazine and recheck at noon for D/C Physical Exam Vital signs: Vital Signs 10/20/17 08:44 10/20/17 09:35 10/20/17 11:20 Temperature 37.1 C Pulse Rate 91 H 73 Respiratory Rate 14 20 Blood Pressure 192/105 H 171/86 H Pulse Oximetry 95 10/20/17 12:00 10/20/17 14:18 10/20/17 16:00 Temperature 36.6 C 36.3 C L Pulse Rate 78 86 92 H Respiratory Rate 20 19 Blood Pressure 207/99 H 188/87 H 190/140 H Pulse Oximetry 96 95 10/20/17 16:20 10/20/17 19:12 10/20/17 20:00 Temperature 36.3 C L Pulse Rate 78 78 74 Respiratory Rate 19 18 Blood Pressure 148/99 H Pulse Oximetry 95 94 L 10/20/17 20:01 10/20/17 23:32 10/21/17 00:00 Temperature 36.3 C L Pulse Rate 79 Respiratory Rate 16 18 Blood Pressure 140/80 150/85 H Pulse Oximetry 96 10/21/17 02:07 10/21/17 04:00 10/21/17 08:31 Temperature Pulse Rate 84 Respiratory Rate 18 12 Blood Pressure 150/90 H Pulse Oximetry 94 L Intake & Output 10/20/17 10/21/17 10/21/17 18:59 06:59 18:59 Intake Total 840 / 840 100 / 100 Output Total 300 / 300 Balance 540 / 540 100 / 100 Intake: IV 100 / 100 Rocephin Inj 1,000 MG In NS Inj 100 / 100 100 ML @ 200 mls/hr IV.SIG Q24H [facility] Rx#:[id number] Oral 840 / 840 Output: Urine 300 / 300 Other: # Voids 3 Date of Last Bowel Movement 10/19/17 10/19/17 Results - Labs CBC & Chem 7: 10/18/17 04:59 10/17/17 16:34 Microbiology 10/17/17 18:00 Blood - Peripheral Aerobic Blood Culture - Preliminary No growth in 3 days 10/17/17 18:00 Blood - Peripheral Anaerobic Blood Culture - Preliminary No growth in 3 days 10/17/17 17:55 Blood - Peripheral Aerobic Blood Culture - Preliminary No growth in 3 days 10/17/17 17:55 Blood - Peripheral Anaerobic Blood Culture - Preliminary No growth in 3 days 10/17/17 17:10 Blood - Peripheral Aerobic Blood Culture - Preliminary No growth in 3 days 10/17/17 17:10 Blood - Peripheral Anaerobic Blood Culture - Preliminary No growth in 3 days 10/17/17 17:05 Blood - Peripheral Aerobic Blood Culture - Preliminary No growth in 3 days 10/17/17 17:05 Blood - Peripheral Anaerobic Blood Culture - Preliminary No growth in 3 days - Procedures none.
[2017-10-21] MEDS ORDERED: hydrALAZINE 25 MG Tablet PO SCH (09:00)
--- NOTE | 2017-10-21 15:20 | P.DS ---
Date of admission: 10/17/17 18:10 Primary care physician: No Primary Care Physician Attending physician on discharge: Rossana Soto Anticipated date of discharge: 10/21/17 Brief History from admission: patient is a 76 y/o male with history of COPD, atrial fibrillation, dyslipidemia , who presented to ER with shortness of breath. he says that he's had sob for the past one week. he had productive cough of yellowish, brownish sputum. he says that he probably had fever at home. he denies PND, orthopnea, recent weight gain. he says that he has some chest wall pain which he relates to his cough.he still smokes. DS: Diagnosis - Discharge Diagnosis (1) Pneumonia Status: Acute (2) Acute exacerbation of chronic obstructive pulmonary disease (COPD) Status: Acute DS: Medications - Discharge Medications Prescriptions: albuterol sulfate [ProAir HFA] 1 puff INHALATION Q4-6H PRN #1 g PRN Reason: shortness of breath azithromycin [Zithromax] 250 mg PO DAILY 3 Days #3 tab cefuroxime axetil 500 mg PO Q12H 5 Days #20 tab diltiazem HCl 120 mg PO DAILY #30 cap hydralazine 25 mg PO BID #60 tab prednisone [Deltasone] 40 mg PO DAILY 5 Days #10 tab tiotropium bromide [Spiriva with HandiHaler] 1 cap INHALATION DAILY 30 Days inh DS: Summary Hospital Course: 76-year-old male with past medical history significant for COPD, A. fib, dyslipidemia who presented to the emergency department with complaints of shortness of breath for 1 week, productive yellow cough, possible fevers at home. Patient was admitted to the hospital and treated for COPD exacerbation with suspected pneumonia. Treated with IV steroids and IV antibiotics including azithromycin and ceftriaxone. Patient improved and passed walk test not requiring ongoing oxygen. Mild hypertension with increase in his Cardizem dose and addition of hydralazine, BP improved. The day of discharge patient is seen and examined resting in bed comfortably in no acute distress on room air. He denies any fevers, chills, nausea, vomiting, diarrhea, cough, shortness of breath or chest pain. Discussed with patient keeping BP logs and follow-up with PCP for ongoing blood pressure management, verbalized understanding and importance of log. - Time Spent with Patient Total time spent providing and/or coordinating discharge services: - Quality: VTE Deep Vein Thrombosis/Pulmonary Embolism Present on Admission: No Exam Vital signs: Vital Signs 10/20/17 16:00 10/20/17 16:20 10/20/17 19:12 Temperature 36.3 C L Pulse Rate 92 H 78 78 Respiratory Rate 19 19 Blood Pressure 190/140 H 148/99 H Pulse Oximetry 95 95 10/20/17 20:00 10/20/17 20:01 10/20/17 23:32 Temperature 36.3 C L Pulse Rate 74 Respiratory Rate 18 16 Blood Pressure 140/80 Pulse Oximetry 94 L 10/21/17 00:00 10/21/17 02:07 10/21/17 04:00 Temperature 36.3 C L Pulse Rate 79 Respiratory Rate 18 18 Blood Pressure 150/85 H 150/90 H Pulse Oximetry 96 10/21/17 08:00 10/21/17 08:31 10/21/17 12:00 Temperature 36.3 C L 36.6 C Pulse Rate 107 H 84 84 Respiratory Rate 18 12 18 Blood Pressure 165/90 H 170/90 H Pulse Oximetry 95 94 L 95 Intake & Output 10/20/17 10/21/17 10/21/17 18:59 06:59 18:59 Intake Total 840 / 840 100 / 100 Output Total 300 / 300 Balance 540 / 540 100 / 100 Intake: IV 100 / 100 Rocephin Inj 1,000 MG In NS Inj 100 / 100 100 ML @ 200 mls/hr IV.SIG Q24H [facility] Rx#:[id number] Oral 840 / 840 Output: Urine 300 / 300 Other: # Voids 3 Date of Last Bowel Movement 10/19/17 10/19/17 10/19/17 Narrative: GENERAL: Well-developed male resting in bed comfortably in no acute distress. SKIN: Warm and dry. HEAD: Atraumatic. Normocephalic. EYES: Pupils equal and round. No scleral icterus. No injection or drainage. ENT: No nasal bleeding or discharge. Mucous membranes pink and moist. NECK: Trachea midline. No JVD. CARDIOVASCULAR: Regular rate and rhythm. RESPIRATORY: No accessory muscle use. Clear to auscultation. Breath sounds equal bilaterally. GASTROINTESTINAL: Abdomen soft, non-tender, nondistended. MUSCULOSKELETAL: Extremities without clubbing, cyanosis, or edema. No obvious deformities. NEUROLOGICAL: Awake and alert. No obvious cranial nerve deficits. Motor grossly within normal limits. Normal speech. PSYCHIATRIC: Appropriate mood and affect; insight and judgment normal. Results Procedures completed during hospitalization: none. Labs on day of discharge: Preliminary micro results at discharge 10/17/17 18:00 Aerobic Blood Culture - Preliminary Blood - Peripheral No growth in 4 days Anaerobic Blood Culture - Preliminary No growth in 4 days 10/17/17 17:55 Aerobic Blood Culture - Preliminary Blood - Peripheral No growth in 4 days Anaerobic Blood Culture - Preliminary No growth in 4 days 10/17/17 17:10 Aerobic Blood Culture - Preliminary Blood - Peripheral No growth in 4 days Anaerobic Blood Culture - Preliminary No growth in 4 days 10/17/17 17:05 Aerobic Blood Culture - Preliminary Blood - Peripheral No growth in 4 days Anaerobic Blood Culture - Preliminary No growth in 4 days - Impressions ITS Impressions Chest X-Ray 10/17/17 16:24 CONCLUSION: Mild vascular prominence as described which may represent early congestion. No evidence of consolidating airspace disease. Discharge Plan - Discharge Disposition Patient Disposition: 01 Discharge Home - Discharge Condition Condition: Fair - Discharge Order Discharge Orders: Discharge Order (Routine); Ordered 10/21/17 Ordered By: [place] Fall - Discharge Details Anticipated Discharge Date: 10/21/17 - Physicians Team Primary Care Provider: Primary Care Gerry,Lilly Attending Provider: Rossana Soto
== END 2017-10-21 14:40 | disposition home or self-care (01) ==
LOC: NEPC 16:05 → NEDA 18:10 → N06 20:47
PROVIDERS: ADMIT Family Medicine; ATTEND Family Medicine